=== PATIENT | male | born 1995 | race Two or more races ===

== ENCOUNTER 2020-02-11 21:48 | Emergency (ER) | payer SELFPAY ==
[~2020-02-11] VITALS: Ht 165.1 cm; Wt 68.0 kg
--- NOTE | 2020-02-11 22:15 | NUR ---
ED Nurse Note: Recieved pt from home, here with c/o abdominal pain x 2 days at 8/10, pt states he has history of inflammed liver and has pain, no nausea or emesis but also with diarrhea, pt denies fevers, sob, cp or any other discomforts, pt is awake, alert and oriented x 4, ambulatory, immediately gowned, urine sample collected, pt placed on monitoring, IV line placed and labs drawn, will resume care as ordered and continue to closely monitor.
[2020-02-11 22:19] LABS: APPEARANCE,URINE CLEAR; BILIRUBIN, URINE NEGATIVE (NEGATIVE); COLOR,URINE PALE YELLOW; GLUCOSE, URINE (UA) NEGATIVE (NEGATIVE); KETONES,URINE NEGATIVE (NEGATIVE); LEUKOCYTE ESTERASE ,URINE NEGATIVE (NEGATIVE); NITRITE,URINE NEGATIVE (NEGATIVE); PH,URINE 5 (4.5-8.0); PROTEIN,URINE 2+ (NEGATIVE); UROBILINOGEN,URINE NORMAL MG/DL (0.0-1.0)
[2020-02-11 22:19] LABS: BASOPHILS % (AUTO) 0.9 % (0.0-2.0); EOSINOPHILS % (AUTO) 1.2 % (0.0-3.0); HEMATOCRIT 49.6 % (42.0-52.0); LYMPHOCYTES % (AUTO) 48.5 % (20.0-45.0); MEAN CORPUSCULAR VOLUME 92 FL (80-99); NEUTROPHILS % (AUTO) 43.4 % (45.0-75.0); PLATELET COUNT 240 K/UL (150-450); RED CELL DISTRIBUTION WIDTH 12.6 % (11.6-14.8); WHITE BLOOD COUNT 8.4 K/UL (4.8-10.8)
--- NOTE | 2020-02-11 22:20 | Emergency Room Report ---
History of Present Illness General Chief Complaint: Abdominal Pain Source: Patient Present Illness HPI Disclaimer: Please note that this report is being documented using [employer] technology. This can lead to erroneous entry secondary to incorrect interpretation by the dictating instrument. HPI: 24-year-old male past no reported past medical history presented with epigastric abdominal pain for 2 months. He describes a constant e pressure left upper quadrant abdominal pain. Patient denies any nausea or vomiting but does report occasional diarrhea. He is currently not on any medications. He does not have a primary care doctor. He denies any fevers cough or chest pain. Does report slight painful urination. Pain is worse with eating. Nonradiating. PMH: Patient denies any past medical history PSH: Reviewed Social Hx: Denies smoking, occasional drinking, Allergies: Coded Allergies: No Known Allergies (Unverified , 02/11/20) COVID-19 Screening Contact w/high risk pt: No Recent Travel to affected area: No Experienced COVID-19 symptoms?: No COVID-19 Testing performed [employer]: No Nursing Documentation-PMH Past Medical History: No Stated History Review of Systems All Other Systems: negative except mentioned in HPI Physical Exam Vital Signs Date Time Temp Pulse Resp B/P (MAP) Pulse Ox O2 Delivery O2 Flow Rate FiO2 02/11/20 21:52 98.2 82 16 141/91 (108) 97 Room Air Sp02 EP Interpretation: reviewed, normal General Appearance: well appearing, no apparent distress Head: normocephalic, atraumatic Eyes: bilateral eye PERRL, bilateral eye EOMI ENT: hearing grossly normal, moist mucus membranes Neck: full range of motion, supple Respiratory: lungs clear, normal breath sounds, no rhonchi, no respiratory distress, no retraction, no wheezing Cardiovascular #1: normal peripheral pulses, regular rate, rhythm, no murmur Gastrointestinal: non tender, soft, non-distended, no guarding Neurologic: alert, oriented x3, no focal defects Skin: normal color, warm/dry Medical Decision Making Diagnostic Impression: Primary Impression: Epigastric pain ER Course MDM: Differential included but not limited to gastritis, GERD, peptic ulcer, pancreatitis, gallstones to name a few Clinical course-IV, laboratory studies and ultrasound ordered. Laboratory studies demonstrated mild elevation of LFTs. Laboratory studies otherwise normal. No signs of infection in the urine. Due to his elevated LFTs I did order ultrasound of the abdomen and preliminary results indicated fatty liver. As patient's pain is been chronic I suspect most likely a gastritis versus GERD. Will start patient on p.o. antacids. I discussed dietary restrictions, drinking plenty of water and establishing outpatient follow-up. Patient expressed understanding the plan. Labs - Laboratory Tests Test 02/11/20 22:00 02/11/20 22:05 White Blood Count 8.4 K/UL (4.8-10.8) Red Blood Count 5.40 M/UL (4.70-6.10) Hemoglobin 16.0 G/DL (14.2-18.0) Hematocrit 49.6 % (42.0-52.0) Mean Corpuscular Volume 92 FL (80-99) Mean Corpuscular Hemoglobin 29.7 PG (27.0-31.0) Mean Corpuscular Hemoglobin Concent 32.3 G/DL (32.0-36.0) Red Cell Distribution Width 12.6 % (11.6-14.8) Platelet Count 240 K/UL (150-450) Mean Platelet Volume 10.2 FL (6.5-10.1) H Neutrophils (%) (Auto) 43.4 % (45.0-75.0) L Lymphocytes (%) (Auto) 48.5 % (20.0-45.0) H Monocytes (%) (Auto) 6.0 % (1.0-10.0) Eosinophils (%) (Auto) 1.2 % (0.0-3.0) Basophils (%) (Auto) 0.9 % (0.0-2.0) Sodium Level 140 MMOL/L (136-145) Potassium Level 3.7 MMOL/L (3.5-5.1) Chloride Level 102 MMOL/L (98-107) Carbon Dioxide Level 28 MMOL/L (21-32) Anion Gap 10 mmol/L (5-15) Blood Urea Nitrogen 15 mg/dL (7-18) Creatinine 1.1 MG/DL (0.55-1.30) Estimated Glomerular Filtration Rate > 60 mL/min (>60) Glucose Level 108 MG/DL (74-106) H Calcium Level 9.2 MG/DL (8.5-10.1) Total Bilirubin 0.5 MG/DL (0.2-1.0) Aspartate Amino Transferase (AST) 61 U/L (15-37) H Alanine Aminotransferase (ALT) 236 U/L (12-78) H Alkaline Phosphatase 115 U/L (46-116) Total Protein 8.4 G/DL (6.4-8.2) H Albumin 4.6 G/DL (3.4-5.0) Globulin 3.8 g/dL Albumin/Globulin Ratio 1.2 (1.0-2.7) Lipase 120 U/L (73-393) Urine Color Pale yellow Urine Appearance Clear Urine pH 5 (4.5-8.0) Urine Specific [place] 1.020 (1.005-1.035) Urine Protein 2+ (NEGATIVE) H Urine Glucose (UA) Negative (NEGATIVE) Urine Ketones Negative (NEGATIVE) Urine Blood Negative (NEGATIVE) Urine Nitrite Negative (NEGATIVE) Urine Bilirubin Negative (NEGATIVE) Urine Urobilinogen Normal MG/DL (0.0-1.0) Urine Leukocyte Esterase Negative (NEGATIVE) Urine RBC 0-2 /HPF (0 - 0) H Urine WBC 0-2 /HPF (0 - 0) Urine Squamous Epithelial Cells None /LPF (NONE/OCC) Urine Bacteria Few /HPF (NONE) On reevaluation: Patient in no acute distress and nontoxic-appearing Plan-discharge home with outpatient follow-up, antacids and return precautions Last Vital Signs Date Time Temp Pulse Resp B/P (MAP) Pulse Ox O2 Delivery O2 Flow Rate FiO2 02/11/20 21:52 98.2 82 16 141/91 (108) 97 Room Air Disposition: HOME, SELF-CARE Condition: Stable Scripts Ondansetron (Zofran) 4 Mg Tablet 4 MG ORAL Q8H PRN for Nausea & Vomiting, #20 TAB 0 Refills Prov: Julian Tang M.D. 02/12/20 Famotidine* (Pepcid 20mg tablet*) 20 Mg Tablet 20 MG ORAL TWICE A DAY, #60 TAB 0 Refills Prov: Julian Tang M.D. 02/12/20 Julian Tang M.D. Feb 11, 2020 22:20
[2020-02-11 22:29] LABS: ANION GAP 10 mmol/L (5-15); BLOOD UREA NITROGEN 15 mg/dL (7-18); CALCIUM 9.2 MG/DL (8.5-10.1); CARBON DIOXIDE 28 MMOL/L (21-32); CHLORIDE 102 MMOL/L (98-107); CREATININE 1.1 MG/DL (0.55-1.30); POTASSIUM 3.7 MMOL/L (3.5-5.1); SODIUM 140 MMOL/L (136-145)
[2020-02-11] MEDS ORDERED: Ketorolac 30mg Inj IV ONE (22:30)
[2020-02-11] MEDS ORDERED: Lidocaine 2% Visc 15ml soln ORAL ONE (22:30)
[2020-02-11] MEDS ORDERED: Aluminum Hydroxide Gel Susp 15ml ORAL ONE (22:30)
[2020-02-11 22:33] LABS: ALANINE AMINOTRANSFERASE 236 U/L (12-78); ALBUMIN 4.6 G/DL (3.4-5.0); ALBUMIN/GLOBULIN RATIO 1.2 (1.0-2.7); ALKALINE PHOSPHATASE 115 U/L (46-116); ASPARTATE AMINO TRANSFERASE 61 U/L (15-37); BILIRUBIN,TOTAL 0.5 MG/DL (0.2-1.0)
[2020-02-11 23:30] VITALS: BP 130/83
--- NOTE | 2020-02-11 23:30 | NUR ---
ED Nurse Note: Pt medicted with GI cocktail and toradol, pt states remains withpain and meds not effective, aware, U/S ordered, no new med orderd, v/s stable, will continue to closely [facility] waiting for test.
[2020-02-12] MEDS ORDERED: ZOFRAN4 MG ORAL (00:37)
[2020-02-12] MEDS ORDERED: FAMOTIDINE20 MG ORAL (00:37)
--- NOTE | 2020-02-12 00:50 | NUR ---
ER DISCHARGE NOTE: Patient is cleared to be discharged per ERMD, pt is aox4, on room air, with stable vital signs. pt was given dc and prescription instructions, pt was able to verbalize understanding, pt id band and iv site removed without complications. pt is able to ambulate with steady gait. pt took all belongings.
[2020-02-12 01:00] VITALS: BP 130/83
--- NOTE | 2020-02-12 02:15 | Diagnostic Imaging Report ---
EXAM: US Abdomen Limited, Right Upper Quadrant CLINICAL HISTORY: PAIN TECHNIQUE: Real-time ultrasound of the right upper quadrant with image documentation. COMPARISON: No relevant prior studies available. FINDINGS: Liver: Echogenic liver parenchyma suggests fatty infiltration. No intrahepatic bile duct dilation. Gallbladder: Gallbladder wall measures about 2 mm in maximal thickness. No gallstones. Common bile duct: Common bile duct measures about 3 mm in maximum diameter. No stones. No dilation. Pancreas: Unremarkable as visualized. Right kidney: Right kidney measures 12.2 x 4.6 x 6.2 cm. Left kidney measures about 11.7 x 6.2 x 5 cm. No stones. No hydronephrosis. Spleen: Spleen measures about 10.6 cm longitudinally. IMPRESSION: Fatty liver
== END 2020-02-12 01:00 | disposition home or self-care (01) ==
LOC: EMR 22:18
DX: R10.13 Epigastric pain (principal); R30.0 Dysuria; R94.5 Abnormal results of liver function studies; K76.0 Fatty (change of) liver, not elsewhere classified
CPT/HCPCS: 36415; 76700; 80053; 81003; 83690; 85025; 96374; 96375; 99284; J1885; J2405